=== PATIENT | female | born 1955 | race Caucasian/White ===

== ENCOUNTER 2016-12-01 11:49 | Inpatient (IN) | payer OTHER ==
[2016-12-01 13:09] VITALS: BMI 24.1
--- NOTE | 2016-12-01 13:46 | HP ---
CIWA Score - CIWA Score Nausea/Vomitin Muscle Tremors: 2 Anxiety: 3 Agitation: 2 Paroxysmal Sweats: 3 Orientation: 0-Oriented Tacttile Disturbances: 1-Very Mild Itch/Numbness Auditory Disturbances: 0-None Visual Disturbances: 0-None Headache: 1-Very Mild CIWA-Ar Total Score: 15 Admission ROS BHS - HPI Chief Complaint: I need to stop using alcohol and i bryan help. Allergies/Adverse Reactions: Allergies Allergy/AdvReac Type Severity Reaction Status Date / Time No Known Allergies Allergy Verified 12/01/16 13:22 History of Present Illness: 61 y/o f pt with h/o chronic alcoholism on mtp seeking detox. Exam Limitations: No Limitations - Ebola screening Have you traveled outside of the country in the last 21 days: No Have you had contact with anyone from an Ebola affected area: No Have you been sick,other than usual withdrawal symptoms: No - Review of Systems Constitutional: Malaise, Unintentional Wgt. Loss (15 lbs x 1 month) EENT: reports: Dental Problems (multiple missing teeth) Respiratory: reports: No Symptoms reported Cardiac: reports: No Symptoms Reported GI: reports: Diarrhea, Indigestion : reports: Frequency Musculoskeletal: reports: No Symptoms Reported Integumentary: reports: No Symptoms Reported Neuro: reports: Tremors Endocrine: reports: No Symptoms Reported Hematology: reports: No Symptoms Reported Psychiatric: reports: No Sypmtoms Reported Other Systems: Reviewed and Negative Patient History - Patient Medical History Hx Anemia: No Hx Asthma: No Hx Chronic Obstructive Pulmonary Disease (COPD): No Hx Cancer: No Hx Cardiac Disorders: No Hx Congestive Heart Failure: No Hx Hypertension: Yes Hx Hypercholesterolemia: No Hx Pacemaker: No HX Cerebrovascular Accident: No Hx Seizures: No Hx Dementia: No Hx Diabetes: No Hx Gastrointestinal Disorders: No Hx Liver Disease: No Hx Genitourinary Disorders: No Hx Sexually Transmitted Disorders: No Hx Renal Disease (ESRD): No Hx Thyroid Disease: No Hx Human Immunodeficiency Virus (HIV): No (neg 2015) Hx Hepatitis C: No Hx Depression: No Hx Suicide Attempt: No Hx Bipolar Disorder: No Hx Schizophrenia: No - Patient Surgical History Past Surgical History: No Hx Section: Yes (1969 x ) - PPD History Previous Implant?: Yes Documented Results: Negative w/o proof Implanted On Prior [facility] Admission?: No PPD to be Administered?: Yes - Reproductive History Last Menstrual Period: 11/15/93 Patient : No - Smoking Cessation Smoking history: Current every day smoker Have you smoked in the past 12 months: Yes Aproximately how many cigarettes per day: 20 Cigars Per Day: 0 Hx Chewing Tobacco Use: No Initiated information on smoking cessation: Yes 'Breaking Loose' booklet given: 12/01/16 - Substance & Tx. History Hx Alcohol Use: Yes Hx Substance Use: No Substance Use Type: Alcohol Hx Substance Use Treatment: Yes - Substances Abused Alcohol Route: Oral Frequency: Daily Amount used: wine(14-6oz bottles) Age of first use: 61 Date of Last Use: 12/01/16 Family Disease History - Family Disease History Family Disease History: Diabetes: Mother Admission Physical Exam [facility] - Vital Signs Vital Signs: Vital Signs - 24 hr 12/01/16 12:55 Temperature 97.0 F L Pulse Rate 73 Respiratory 18 Rate Blood Pressure 134/83 61 y/o f pt wn/wd in nad ambulating cooperative with exam. - Physical General Appearance: Yes: No Apparent Distress, Appropriately Dressed, Tremorous , Anxious HEENTM: Yes: EOMI, Normocephalic, Normal Voice, SVEN Respiratory: Yes: Chest Non-Tender, Lungs Clear, Normal Breath Sounds, No Respiratory Distress Neck: Yes: Supple Breast: Yes: Breast Exam Deferred Cardiology: Yes: Regular Rhythm, Regular Rate, S1, S2 Abdominal: Yes: Non Tender, Flat, Soft, Increased Bowel Sounds, Surgical Scar ( well healed c-x scar vertical) Genitourinary: Yes: Frequency Back: Yes: Decreased Range of Motion Musculoskeletal: Yes: Within Normal Limits Extremities: Yes: Tremors 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 NML intact, Fully Oriented, Alert, Motor Strength 5/5, Normal Response Integumentary: Yes: Moist, Other (spider angioma on chest) - Diagnostic (1) Alcohol dependence with uncomplicated withdrawal Current Visit: Yes Status: Chronic (2) Methadone maintenance therapy patient Current Visit: Yes Status: Chronic (3) HTN (hypertension) Current Visit: Yes Status: Chronic Qualifiers: Hypertension type: essential hypertension Qualified Code(s): I10 - Essential (primary) hypertension (4) Nicotine dependence Current Visit: Yes Status: Acute Cleared for Admission [facility] - Detox or Rehab [facility] Level of Care: Medically Managed Detox Regimen/Protocol: Librium BHS Breath Alcohol Content Breath Alcohol Content: 0.010 Urine Pregancy Test - Result Urine Test Results: Negative- NO Line Present Urine Drug Screen - Results Drug Screen Negative: No Urine Drug Screen Results: MTD-Methadone
[2016-12-01] MEDS ORDERED: MAG HYDROX/AL HYDROX/SIMETH 30 ML UNIT-DOSE CUP PO PRN (13:54)
[2016-12-01] MEDS ORDERED: chlordiazePOXIDE HCL 25 MG CAPSULE PO PRN (13:54)
[2016-12-01] MEDS ORDERED: MAGNESIUM CITRATE 300 ML BOTTLE PO PRN (13:54)
[2016-12-01] MEDS ORDERED: ACETAMINOPHEN 325 MG TABLET (FP) PO PRN (13:54)
[2016-12-01] MEDS ORDERED: IBUPROFEN 400 MG TABLET (FP) PO PRN (13:54)
[2016-12-01] MEDS ORDERED: MAGNESIUM HYDROX 2400MG/30ML ORAL SUSPENSION 30 ML CUP PO PRN (13:54)
[2016-12-01] MEDS ORDERED: NICOTINE POLACRILEX 4 MG GUM BC PRN (13:54)
[2016-12-01] MEDS ORDERED: P-EPHED 60MG/TRIPROLIDI 2.5MG TABLET PO PRN (13:54)
[2016-12-01] MEDS ORDERED: hydrOXYzine PAMOATE 25 MG CAPSULE (FP) PO PRN (13:54)
[2016-12-01] MEDS ORDERED: LOPERAMIDE HCL 2 MG CAPSULE PO PRN (13:54)
[2016-12-01] MEDS ORDERED: guaiFENesin/D-METHORPHAN HB 10 ML UNIT-DOSE CUPS PO PRN (13:54)
[2016-12-01] MEDS ORDERED: MENTHOL/PHENOL 1 EACH UD MM PRN (13:54)
[2016-12-01] MEDS: chlordiazePOXIDE HCL 25 MG CAPSULE PO SCH ×2 (18:09→22:06)
[2016-12-01] MEDS ORDERED: ONDANSETRON *ODT* 4 MG TABLET SL ONE (18:44)
--- NOTE | 2016-12-01 18:45 | PN ---
BHS Progress Note Note: vomited x 1 undigested food zofran 4 mg x 1 discontinue motrin continue detox
[2016-12-01 20:52] LABS: URINE APPEARANCE CLEAR; URINE BILIRUBIN NEGATIVE (NEGATIVE); URINE COLOR YELLOW; URINE GLUCOSE (UA) NEGATIVE (NEGATIVE); URINE KETONE NEGATIVE (NEGATIVE); URINE LEUK ESTERASE NEGATIVE (NEGATIVE); URINE NITRITE NEGATIVE (NEGATIVE); URINE PROTEIN NEGATIVE (NEGATIVE); URINE UROBILINOGEN NEGATIVE E.U./dl (0.2-1.0)
[2016-12-01 21:00] LABS: URINE BLOOD 1+ (NEGATIVE)
[2016-12-01 21:05] LABS: URINE HYALINE CAST 1 /lpf; URINE MUCUS RARE; URINE RBC 4 /hpf (0-3); URINE WBC 1 /hpf (3-5)
[2016-12-01] MEDS: THIAMINE HCL 100 MG TABLET (FP) PO SCH (22:06)
[2016-12-02] MEDS: chlordiazePOXIDE HCL 25 MG CAPSULE PO SCH ×4 (05:40→22:23)
[2016-12-02] MEDS ORDERED: METHADONE HCL 10 MG TABLET PO ONE (09:32)
[2016-12-02] MEDS ORDERED: METHADONE 80 MG, METHADONE 10 MG PO ONE (09:40)
[2016-12-02 10:12] LABS: MCH 33.7 pg (25.7-33.7); MCHC 33.7 g/dl (32.0-36.0); MEAN CELL VOLUME 100.2 fl (80-96); MEAN PLT VOLUME 9.5 fl (7.5-11.1); PLATELET COUNT 202 K/MM3 (134-434); WHITE BLOOD COUNT 5.7 K/mm3 (4.0-10.0)
[2016-12-02] MEDS: amLODIPine BESYLATE 5 MG TABLET (FP) PO SCH (10:31)
[2016-12-02] MEDS: NICOTINE 21 MG/24 HOURS TOPICAL PATCH TD SCH (10:31)
[2016-12-02] MEDS: PRENATAL VITAMINS W/ FOLIC ACID TABLET (FP) PO SCH (10:32)
[2016-12-02] MEDS ORDERED: METHADONE HCL 10 MG TABLET ONE (10:36)
[2016-12-02] MEDS ORDERED: METHADONE HCL 40 MG DISPERSABLE TABLET ONE (10:36)
[2016-12-02 11:22] LABS: ALK PHOS 68 U/L (45-117); ANION GAP 7 (8-16); BILIRUBIN,TOTAL 0.8 mg/dL (0.2-1.0); CO2 31 mmol/L (21-32); CREATININE 0.6 mg/dL (0.55-1.02); GLUCOSE,RANDOM 105 mg/dL (74-106); SGOT/AST 14 U/L (15-37); SGPT/ALT 16 U/L (12-78); TOT PROT 7.5 g/dl (6.4-8.2)
--- NOTE | 2016-12-02 11:37 | PN ---
S CIWA - CIWA Score Nausea/Vomitin Muscle Tremors: 2 Anxiety: 3 Agitation: 2 Paroxysmal Sweats: 3 Orientation: 0-Oriented Tacttile Disturbances: 1-Very Mild Itch/Numbness Auditory Disturbances: 0-None Visual Disturbances: 0-None Headache: 0-None Present CIWA-Ar Total Score: 13 BHS Progress Note (SOAP) Subjective: iinterrupted sleep, sweats, shakes Objective: 12/02/16 11:35 Vital Signs Temperature 97.7 F 12/02/16 09:39 Pulse Rate 68 12/02/16 09:39 Respiratory Rate 16 12/02/16 09:39 Blood Pressure 147/65 12/02/16 09:39 O2 Sat by Pulse Oximetry (%) Laboratory Tests 12/01/16 12/02/16 12/02/16 19:30 06:00 06:00 WBC 5.7 RBC 4.60 Hgb 15.5 H Hct 46.1 H MCV 100.2 H MCHC 33.7 RDW 14.0 Plt Count 202 MPV 9.5 Sodium 138 Potassium 4.4 Chloride 100 Carbon Dioxide 31 Anion Gap 7 L BUN 14 Creatinine 0.6 Creat Clearance w eGFR > 60 Random Glucose 105 Calcium 9.0 Total Bilirubin 0.8 AST 14 L ALT 16 Alkaline Phosphatase 68 Total Protein 7.5 Albumin 4.0 Urine Color Yellow Urine Appearance Clear Urine pH 5.0 Ur Specific [place] 1.016 Urine Protein Negative Urine Glucose (UA) Negative Urine Ketones Negative Urine Blood 1+ H Urine Nitrite Negative Urine Bilirubin Negative Urine Urobilinogen Negative Ur Leukocyte Esterase Negative Urine RBC 4 Urine WBC 1 Hyaline Casts 1 Urine Mucus Rare pt aox3 in nad ambulating Assessment: 12/02/16 11:36 withdrawal sx;s Plan: cont. detox ' increase fluids methadone 90mg /d
--- NOTE | 2016-12-02 17:18 | EKG ---
Test Reason : Blood Pressure : / mmHG Vent. Rate : 068 BPM Atrial Rate : 068 BPM P-R Int : 154 ms QRS Dur : 098 ms QT Int : 396 ms P-R-T Axes : 062 020 034 degrees QTc Int : 421 ms NORMAL SINUS RHYTHM MINIMAL VOLTAGE CRITERIA FOR LVH, MAY BE NORMAL VARIANT BORDERLINE ECG NO PREVIOUS ECGS AVAILABLE Confirmed by MILY CRUZ MD ([id number]) on 12/02/2016 5:18:24 PM Referred By: Héctor Noel Confirmed By:MILY CRUZ MD
[2016-12-02] MEDS: diphenhydrAMINE HCL 50 MG CAPSULE PO PRN (22:22)
[2016-12-02] MEDS: THIAMINE HCL 100 MG TABLET (FP) PO SCH (22:23)
[2016-12-03] MEDS ORDERED: METHADONE HCL 40 MG DISPERSABLE TABLET ONE (04:23)
[2016-12-03] MEDS ORDERED: METHADONE HCL 10 MG TABLET ONE (04:25)
[2016-12-03] MEDS: METHADONE 80 MG, METHADONE 10 MG PO SCH (05:48)
[2016-12-03] MEDS: chlordiazePOXIDE HCL 25 MG CAPSULE PO SCH ×2 (05:49→10:16)
[2016-12-03] MEDS ORDERED: METHADONE HCL 40 MG DISPERSABLE TABLET PO SCH (06:00)
[2016-12-03] MEDS: PRENATAL VITAMINS W/ FOLIC ACID TABLET (FP) PO SCH (10:16)
[2016-12-03] MEDS: amLODIPine BESYLATE 5 MG TABLET (FP) PO SCH (10:16)
[2016-12-03] MEDS: NICOTINE 21 MG/24 HOURS TOPICAL PATCH TD SCH (10:17)
--- NOTE | 2016-12-03 13:44 | PN ---
[facility] CIWA - CIWA Score Nausea/Vomitin Muscle Tremors: 3 Anxiety: 3 Agitation: 2 Paroxysmal Sweats: 1-Minimal Palms Moist Orientation: 0-Oriented Tacttile Disturbances: 1-Very Mild Itch/Numbness Auditory Disturbances: 1-Very Mild Visual Disturbances: 1-Very Mild Sensitivity Headache: 2-Mild CIWA-Ar Total Score: 17 S Progress Note (SOAP) Subjective: ALERT,IRRITABLE,ANXIOUS,INTERRUPTED SLEEP,TREMOR Objective: 12/03/16 13:43 Vital Signs Temperature 97 F L 12/03/16 10:29 Pulse Rate 85 12/03/16 10:29 Respiratory Rate 18 12/03/16 10:29 Blood Pressure 116/64 12/03/16 10:29 O2 Sat by Pulse Oximetry (%) EKG NSR Laboratory Last Values WBC 5.7 K/mm3 (4.0-10.0) 12/02/16 06:00 RBC 4.60 M/mm3 (3.60-5.2) 12/02/16 06:00 Hgb 15.5 GM/dL (10.7-15.3) H 12/02/16 06:00 Hct 46.1 % (32.4-45.2) H 12/02/16 06:00 MCV 100.2 fl (80-96) H 12/02/16 06:00 MCHC 33.7 g/dl (32.0-36.0) 12/02/16 06:00 RDW 14.0 % (11.6-15.6) 12/02/16 06:00 Plt Count 202 K/MM3 (134-434) 12/02/16 06:00 MPV 9.5 fl (7.5-11.1) 12/02/16 06:00 Sodium 138 mmol/L (136-145) 12/02/16 06:00 Potassium 4.4 mmol/L (3.5-5.1) 12/02/16 06:00 Chloride 100 mmol/L (98-107) 12/02/16 06:00 Carbon Dioxide 31 mmol/L (21-32) 12/02/16 06:00 Anion Gap 7 (8-16) L 12/02/16 06:00 BUN 14 mg/dL (7-18) 12/02/16 06:00 Creatinine 0.6 mg/dL (0.55-1.02) 12/02/16 06:00 Creat Clearance w eGFR > 60 (>60) 12/02/16 06:00 Random Glucose 105 mg/dL (74-106) 12/02/16 06:00 Calcium 9.0 mg/dL (8.5-10.1) 12/02/16 06:00 Total Bilirubin 0.8 mg/dL (0.2-1.0) 12/02/16 06:00 AST 14 U/L (15-37) L 12/02/16 06:00 ALT 16 U/L (12-78) 12/02/16 06:00 Alkaline Phosphatase 68 U/L (45-117) 12/02/16 06:00 Total Protein 7.5 g/dl (6.4-8.2) 12/02/16 06:00 Albumin 4.0 g/dl (3.4-5.0) 12/02/16 06:00 Urine Color Yellow 12/01/16 19:30 Urine Appearance Clear 12/01/16 19:30 Urine pH 5.0 (5.0-8.0) 12/01/16 19:30 Ur Specific [place] 1.016 (1.001-1.035) 12/01/16 19:30 Urine Protein Negative (NEGATIVE) 12/01/16 19:30 Urine Glucose (UA) Negative (NEGATIVE) 12/01/16 19:30 Urine Ketones Negative (NEGATIVE) 12/01/16 19:30 Urine Blood 1+ (NEGATIVE) H 12/01/16 19:30 Urine Nitrite Negative (NEGATIVE) 12/01/16 19:30 Urine Bilirubin Negative (NEGATIVE) 12/01/16 19:30 Urine Urobilinogen Negative E.U./dl (0.2-1.0) 12/01/16 19:30 Ur Leukocyte Esterase Negative (NEGATIVE) 12/01/16 19:30 Urine RBC 4 /hpf (0-3) 12/01/16 19:30 Urine WBC 1 /hpf (3-5) 12/01/16 19:30 Hyaline Casts 1 /lpf 12/01/16 19:30 Urine Mucus Rare 12/01/16 19:30 RPR Titer Nonreactive (NONREACTIVE) 12/02/16 06:00 Assessment: 12/03/16 13:43 WITHDRAWAL SYMPTOM Plan: CONTINUE DETOX
[2016-12-03] MEDS: chlordiazePOXIDE 5 MG CAPSULE PO SCH ×2 (17:38→22:09)
[2016-12-03] MEDS: THIAMINE HCL 100 MG TABLET (FP) PO SCH (22:09)
[2016-12-03] MEDS: diphenhydrAMINE HCL 50 MG CAPSULE PO PRN (22:10)
[2016-12-04] MEDS ORDERED: METHADONE HCL 10 MG TABLET ONE (04:39)
[2016-12-04] MEDS ORDERED: METHADONE HCL 40 MG DISPERSABLE TABLET ONE (04:39)
[2016-12-04] MEDS: METHADONE 80 MG, METHADONE 10 MG PO SCH (05:28)
[2016-12-04] MEDS: chlordiazePOXIDE 5 MG CAPSULE PO SCH ×2 (05:28→10:31)
[2016-12-04] MEDS: NICOTINE 21 MG/24 HOURS TOPICAL PATCH TD SCH (10:32)
[2016-12-04] MEDS: PRENATAL VITAMINS W/ FOLIC ACID TABLET (FP) PO SCH (10:32)
[2016-12-04] MEDS: amLODIPine BESYLATE 5 MG TABLET (FP) PO SCH (10:32)
--- NOTE | 2016-12-04 12:34 | PN ---
S Progress Note (SOAP) Subjective: ALERT,IRRITABLE,ANXIOUS,INTERRUPTED SLEEP Objective: 12/04/16 12:33 Vital Signs Temperature 98.1 F 12/04/16 10:12 Pulse Rate 90 12/04/16 10:12 Respiratory Rate 18 12/04/16 10:12 Blood Pressure 127/56 12/04/16 10:12 O2 Sat by Pulse Oximetry (%) Assessment: 12/04/16 12:33 WITHDRAWAL SYMPTOM Plan: CONTINUE DETOX,DISCHARGE IN AM
[2016-12-04] MEDS: chlordiazePOXIDE HCL 10 MG CAPSULE PO SCH ×2 (17:24→22:23)
[2016-12-04] MEDS: diphenhydrAMINE HCL 50 MG CAPSULE PO PRN (22:23)
[2016-12-04] MEDS: THIAMINE HCL 100 MG TABLET (FP) PO SCH (22:23)
[2016-12-05] MEDS ORDERED: METHADONE HCL 10 MG TABLET ONE (04:52)
[2016-12-05] MEDS ORDERED: METHADONE HCL 40 MG DISPERSABLE TABLET ONE (04:52)
[2016-12-05] MEDS: chlordiazePOXIDE HCL 10 MG CAPSULE PO SCH (05:51)
[2016-12-05] MEDS: METHADONE 80 MG, METHADONE 10 MG PO SCH (05:52)
[2016-12-05] MEDS: amLODIPine BESYLATE 5 MG TABLET (FP) PO SCH (10:35)
[2016-12-05] MEDS: PRENATAL VITAMINS W/ FOLIC ACID TABLET (FP) PO SCH (10:36)
[2016-12-05] MEDS: NICOTINE 21 MG/24 HOURS TOPICAL PATCH TD SCH (10:38)
[2016-12-05 10:56] VITALS: BP 101/55; PULSE 88; TEMP 97.9
--- NOTE | 2016-12-05 16:25 | DS ---
[facility] Detox Discharge Summary Admission Date: 12/01/16 Discharge Date: 12/05/16 - History Present History: Alcohol Dependence Pertinent Past History: HTN - Physical Exam Results Vital Signs: Vital Signs Temperature 97.9 F 12/05/16 10:00 Pulse Rate 88 12/05/16 10:00 Respiratory Rate 18 12/05/16 10:00 Blood Pressure 101/55 12/05/16 10:00 O2 Sat by Pulse Oximetry (%) Pertinent Admission Physical Exam Findings: Withdrawal symptoms Laboratory Tests 12/01/16 12/02/16 12/02/16 19:30 06:00 06:00 WBC 5.7 RBC 4.60 Hgb 15.5 H Hct 46.1 H MCV 100.2 H MCHC 33.7 RDW 14.0 Plt Count 202 MPV 9.5 Sodium 138 Potassium 4.4 Chloride 100 Carbon Dioxide 31 Anion Gap 7 L BUN 14 Creatinine 0.6 Creat Clearance w eGFR > 60 Random Glucose 105 Calcium 9.0 Total Bilirubin 0.8 AST 14 L ALT 16 Alkaline Phosphatase 68 Total Protein 7.5 Albumin 4.0 Urine Color Yellow Urine Appearance Clear Urine pH 5.0 Ur Specific [place] 1.016 Urine Protein Negative Urine Glucose (UA) Negative Urine Ketones Negative Urine Blood 1+ H Urine Nitrite Negative Urine Bilirubin Negative Urine Urobilinogen Negative Ur Leukocyte Esterase Negative Urine RBC 4 Urine WBC 1 Hyaline Casts 1 Urine Mucus Rare RPR Titer 12/02/16 06:00 WBC RBC Hgb Hct MCV MCHC RDW Plt Count MPV Sodium Potassium Chloride Carbon Dioxide Anion Gap BUN Creatinine Creat Clearance w eGFR Random Glucose Calcium Total Bilirubin AST ALT Alkaline Phosphatase Total Protein Albumin Urine Color Urine Appearance Urine pH Ur Specific [place] Urine Protein Urine Glucose (UA) Urine Ketones Urine Blood Urine Nitrite Urine Bilirubin Urine Urobilinogen Ur Leukocyte Esterase Urine RBC Urine WBC Hyaline Casts Urine Mucus RPR Titer Nonreactive Labs noted - Treatment Hospital Course: Detox Protocol Followed, Detoxed Safely, Responded well, Discharged Condition Good - Medication Discharge Medications: Ambulatory Orders Amlodipine Besylate [Norvasc -] 5 mg PO DAILY 12/01/16 - Diagnosis (1) Nicotine dependence Status: Chronic (2) Alcohol dependence with uncomplicated withdrawal Status: Acute (3) HTN (hypertension) Status: Chronic Qualifiers: Hypertension type: essential hypertension Qualified Code(s): I10 - Essential (primary) hypertension (4) Methadone maintenance therapy patient Status: Chronic - AMA Did Patient Leave Against Medical Advice: No
== END 2016-12-05 12:42 | disposition home or self-care (01) | DRG 773 ==
LOC: YASAS 11:49 → Y6N 14:38
PROVIDERS: ADMIT Internal Medicine Addiction Medicine; ATTEND Internal Medicine Addiction Medicine
PROC: HZ2ZZZZ Detoxification Services for Substance Abuse Treatment (ICD-10-PCS; principal; 2016-12-05)
DX: F11.20 Opioid dependence, uncomplicated (principal); F10.230 Alcohol dependence with withdrawal, uncomplicated; F17.210 Nicotine dependence, cigarettes, uncomplicated; I10 Essential (primary) hypertension
CPT/HCPCS: 36415; 80053; 81003; 81015; 85027; 86593; 93005; 93010